=== PATIENT | male | born 1980 | race Caucasian/White ===

== ENCOUNTER 2019-12-11 17:49 | Emergency (ER) | payer SELFPAY ==
[~2019-12-11] VITALS: Ht 182 cm; Wt 72.0 kg
[~2019-12-11 17:49] MED LIST: CYCL10TA9 PO; HYDR1CAP2 PO; IBP800T PO
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
[2019-12-11] MEDS ORDERED: SULF1TAB35 PO (18:24)
[2019-12-11] MEDS ORDERED: MUPI1OIN6 TP (18:24)
[2019-12-11] MEDS ORDERED: TETANUS,DIPTH,PERTUSS P/F (BOOSTRIX) 0.5 ML VIAL IM ONE (18:30)
[2019-12-11] MEDS ORDERED: TRIM/SULFAMETH 160/800 (SEPTRA DS) TAB PO ONE (18:30)
[2019-12-11 18:49] VITALS: BP 118/73
[2019-12-11] MEDS ORDERED: MUPIROCIN 2% OINT 22 GM (BACTROBAN) TUBE TOP SCH (21:00)
== END 2019-12-11 18:49 | disposition home or self-care (01) ==
LOC: EDUNIT# 17:49 → ER 17:51
DX: S51.001A Unspecified open wound of right elbow, initial encounter (principal); L08.9 Local infection of the skin and subcutaneous tissue, unspecified; F17.210 Nicotine dependence, cigarettes, uncomplicated; Z23 Encounter for immunization; Z87.828 Personal history of other (healed) physical injury and trauma; X58.XXXA Exposure to other specified factors, initial encounter
CPT/HCPCS: 90471; 90715; 99282